=== PATIENT | male | born 1935 | race Caucasian/White ===

== ENCOUNTER → 2017-04-28 09:13 | Outpatient (CLI) | payer MEDICARE, OTHER, SELFPAY ==
[2017-04-28 11:31] LABS: AST(SGOT) 18 U/L (15-37); Alanine Aminotransfer ALT/SGPT 31 U/L (12-78); Albumin, Serum 3.2 g/dL (3.4-5.0); Alkaline Phosphatase 146 U/L (45-117); Bilirubin, Direct 0.28 mg/dL (0.00-0.30); Cholesterol 133 mg/dL (200); Globulin 3.9 g/dL (2.2-4.2); High Density Lipoprotein 44 mg/dL; Protein, Total 7.1 g/dL (6.4-8.2); T4 Total, Thyroxin 11.9 ug/dL (4.5-12.1); Triglycerides 48 mg/dL; Very Low Density Lipoprotein 10 mg/dL (5-40)
== END ==
PROVIDERS: Family Provider Family Medicine; PCP Family Medicine; Visit Provider Nurse Practitioner Family
DX: E78.5 Hyperlipidemia, unspecified (principal)
CPT/HCPCS: 36415; 80061; 80076; 84436; 84443

== ENCOUNTER → 2017-05-19 07:49 | Outpatient (CLI) | payer MEDICARE, OTHER, SELFPAY ==
--- NOTE | 2017-05-20 11:54 | PFT ---
INTRODUCTION: The patient is an 81-year-old male currently under the care of Alvino Flor NP that presents for pulmonary function testing secondary to a diagnosis of high risk medication use. Respiratory therapy reports good patient effort reports no other concerns. Bronchodilators were used during testing. INTERPRETATION: Forced expiration spirometry demonstrates the presence of a mild large airways obstructive ventilatory defect. There was no significant response to aerosolized bronchodilators, based upon strict ATS criteria. Spirograms are of good quality and do not plateau indicating slow emptying of the lungs. The respiratory flow volume loop appears normal. Body plethysmography was performed and reveals lung volumes to be within normal limits. Diffusing capacity by single breath CO is within normal limits. When compared to previous pulmonary function studies dated February 2013, there has been a 13% decrease in the patient's DLCO. IMPRESSION: These pulmonary function studies demonstrate the presence of an irreversible mild large airways obstructive ventilatory defect. There has been a 13% reduction in the patient's diffusing capacity since PFTs were last completed in February 2013. Clinical correlation is recommended.
== END ==
PROVIDERS: Family Provider Family Medicine; PCP Family Medicine; Visit Provider Nurse Practitioner Family
DX: Z79.899 Other long term (current) drug therapy (principal)
CPT/HCPCS: 94060; 94726; 94729

== ENCOUNTER → 2017-10-28 08:07 | Outpatient (CLI) | payer MEDICARE, OTHER, SELFPAY ==
[2017-10-28 09:11] LABS: AST(SGOT) 19 U/L (15-37); Alanine Aminotransfer ALT/SGPT 30 U/L (16-61); Albumin, Serum 3.2 g/dL (3.2-5.0); Alkaline Phosphatase 132 U/L (45-117); Bilirubin, Direct 0.27 mg/dL (0.00-0.30); Cholesterol 148 mg/dL (200); Globulin 3.9 g/dL (2.2-4.2); High Density Lipoprotein 45 mg/dL; Protein, Total 7.1 g/dL (6.4-8.2); Triglycerides 52 mg/dL; Very Low Density Lipoprotein 10 mg/dL (5-40)
== END ==
PROVIDERS: Family Provider Family Medicine; PCP Family Medicine; Visit Provider Nurse Practitioner Family
DX: E78.5 Hyperlipidemia, unspecified (principal); Z79.899 Other long term (current) drug therapy
CPT/HCPCS: 36415; 80061; 80076

== ENCOUNTER → 2017-12-27 10:22 | Outpatient (CLI) | payer MEDICARE, OTHER, SELFPAY ==
[2017-12-27 11:06] LABS: International Normalized Ratio 2.4; Prothrombin Time (Protime)PT. 26.4 SECONDS (11.7-14.9)
== END ==
PROVIDERS: Family Provider Family Medicine; PCP Family Medicine; Referring Provider Physician Assistant Medical; Visit Provider Physician Assistant Medical
DX: I48.0 Paroxysmal atrial fibrillation (principal); Z79.01 Long term (current) use of anticoagulants
CPT/HCPCS: 36415; 85610

== ENCOUNTER → 2018-01-16 15:44 | Outpatient (CLI) | payer MEDICARE, OTHER, SELFPAY ==
[2018-01-16 18:14] LABS: Prothrombin Time (Protime)PT. 51.1 SECONDS (11.7-14.9)
[2018-01-16 19:48] LABS: International Normalized Ratio 5.6
== END ==
PROVIDERS: Family Provider Family Medicine; PCP Family Medicine; Referring Provider Internal Medicine Cardiovascular Disease; Visit Provider Internal Medicine Cardiovascular Disease
DX: I48.0 Paroxysmal atrial fibrillation (principal); I47.1 Supraventricular tachycardia; Z79.01 Long term (current) use of anticoagulants
CPT/HCPCS: 36415; 85610

== ENCOUNTER 2018-01-25 10:54 | Outpatient (RCR) | payer MEDICARE, OTHER, SELFPAY ==
[2018-01-20 10:31] LABS: Prothrombin Time (Protime)PT. 51.6 SECONDS (11.7-14.9)
[2018-01-20 10:43] LABS: International Normalized Ratio 5.7
[2018-01-23 09:19] LABS: International Normalized Ratio 2.5; Prothrombin Time (Protime)PT. 26.7 SECONDS (11.7-14.9)
[2018-01-25 12:39] LABS: International Normalized Ratio 1.8; Prothrombin Time (Protime)PT. 20.9 SECONDS (11.7-14.9)
== END 2018-01-25 12:00 | disposition home or self-care (01) ==
LOC: LAB 10:54
PROVIDERS: Family Provider Family Medicine; PCP Family Medicine; Referring Provider Internal Medicine Cardiovascular Disease; Visit Provider Internal Medicine Cardiovascular Disease
DX: I48.0 Paroxysmal atrial fibrillation (principal); I47.1 Supraventricular tachycardia; Z79.01 Long term (current) use of anticoagulants
CPT/HCPCS: 36415; 85610

== ENCOUNTER → 2018-03-13 09:52 | Outpatient (CLI) | payer MEDICARE, OTHER, SELFPAY ==
--- NOTE | 2018-03-13 09:58 | US_ITS ---
STUDY: RENAL ULTRASOUND - COMPLETE REASON FOR EXAM: Male, 82 years old. Urinary retention. TECHNIQUE: Ultrasound evaluation of the kidneys was performed with real-time and static alfaro-scale imaging. COMPARISON: None. FINDINGS: RIGHT KIDNEY: Normal location of the right kidney, which is normal in size. The right kidney measures 10.8 x 5.9 x 6.4 cm. There is a normal cortex of the right kidney. The renal cortex measures 1.1 cm. There is no right renal mass or cyst. There are no right renal calculi. There is no right hydronephrosis. DISTAL RIGHT URETER: There is non-visualization of the distal right ureter. There is no demonstrated right ureterovesical junction calculus. There is a visualized right ureteral jet. LEFT KIDNEY: Normal location of the left kidney, which is normal in size. The left kidney measures 10.9 x 6.1 x 5.3 cm. There is a normal cortex of the left kidney. The renal cortex measures 1.3 cm. Small left renal cysts are seen measuring 1.2 and 1.7 cm. There are no left renal calculi. There is no left hydronephrosis. DISTAL LEFT URETER: There is non-visualization of the distal left ureter. There is no demonstrated left ureterovesical junction calculus. There is a visualized left ureteral jet. BLADDER: The distended urinary bladder has a volume of 242 ml. The empty urinary bladder has a volume of 294 ml. The patient was unable to empty the bladder. There is a normal wall thickness of the distended urinary bladder. There is no demonstrated mass within the urinary bladder. There are no demonstrated bladder calculi. Prostate is only mildly enlarged, but does extend into the base of the bladder. US/Kidney and Bladder IMPRESSION: No acute abnormalities of the kidneys. No hydronephrosis. However the patient could not void in the bladder volume actually increased over the course of the exam. Electronically Signed: Beau Aldrich MD at 17:44 EST , Service support ,
== END ==
PROVIDERS: Family Provider Family Medicine; PCP Family Medicine; Referring Provider Nurse Practitioner Adult Health; Visit Provider Nurse Practitioner Adult Health
DX: R33.9 Retention of urine, unspecified (principal)
CPT/HCPCS: 76770

== ENCOUNTER → 2018-10-20 07:43 | Outpatient (CLI) | payer MEDICARE, OTHER, SELFPAY ==
[2018-07-21 10:46] VITALS: BMI 29.7
--- NOTE | 2018-10-20 07:44 | RAD_ITS ---
STUDY: X-RAY CHEST REASON FOR EXAM: Male, 83 years old. Use of long-term meds. TECHNIQUE: PA and lateral views of the chest. COMPARISON: Comparison is made with prior examination dated April 21, 2015. FINDINGS: Stable increased interstitial markings at the lung bases suggestive of bibasilar scarring. Hyperinflation. There is no demonstrated pleural abnormality. Normal size heart. Normal mediastinum and christopher. Normal visualized pulmonary arteries. Normal visualized aortic arch and descending thoracic aorta. There are diffuse degenerative changes of the visualized thoracic spine. Normal visualized ribs, clavicles, and shoulders. There is no demonstrated abnormality of the visualized soft tissue structures of the upper abdomen. RAD/Chest PA and Lateral IMPRESSION: Stable bibasilar scarring. Electronically Signed: Franklin Mansfield, at 8:58 EDT , Service support ,
--- NOTE | 2018-10-20 11:23 | PFTCOMP_ITS ---
COMPLETE PULMONARY FUNCTION TEST INTERPRETATION Brief HPI: Patient is an 83 year old male, currently under the care of Alvino Flor, who presents to [facility] for complete pulmonary function tests secondary to diagnosis of hypertension. Respiratory therapist reports good effort and reproducible results. Interpretation: Forced expiration spirometry shows no large airways obstructive ventilatory defect with an FEV1 of 105% predicted. There is no significant bronchodilator response by strict ATS criteria. Spirograms are of good quality and plateau normally. The respiratory flow volume loop shows a normal pattern. Lung volumes by body plethysmography show a normal total lung capacity at 7.46 L, 114% predicted. All other lung volumes are within normal limits. Diffusion capacity by carbon monoxide is normal at 113% predicted. The airway resistance is normal. Compared to previous pulmonary function tests from 05/19/2017, there is been a significant improvement in total lung capacity and DLCO by 15% and 14% respectively. Impression: These pulmonary function tests are within normal limits.
[2018-10-20 12:09] LABS: AST(SGOT) 17 U/L (15-37); Alanine Aminotransfer ALT/SGPT 25 U/L (16-61); Albumin, Serum 3.4 g/dL (3.2-5.0); Alkaline Phosphatase 145 U/L (45-117); Bilirubin, Direct 0.21 mg/dL (0.00-0.30); Protein, Total 7.4 g/dL (6.4-8.2); T4 Free Direct 1.35 ng/dL (0.76-1.46); Thyroid Stim Hormone (TSH) 0.63 uIU/mL (0.358-3.74)
== END ==
PROVIDERS: Family Provider Family Medicine; PCP Family Medicine; Referring Provider Nurse Practitioner Family; Visit Provider Nurse Practitioner Family
DX: I10 Essential (primary) hypertension (principal); I48.0 Paroxysmal atrial fibrillation; Z79.899 Other long term (current) drug therapy
CPT/HCPCS: 36415; 71046; 80076; 84439; 84443; 94060; 94726; 94729

== ENCOUNTER 2019-11-14 05:33 | Day surgery (SDC) | payer MEDICARE, OTHER, SELFPAY ==
[2019-02-13 13:42] VITALS: BMI 29.5
[2019-11-07 13:15] VITALS: BMI 29.0
[2019-11-08 12:25] LABS: Hematocrit 38.1 % (40-54); Hemoglobin 12.2 g/dL (13.0-16.5); Mean Corpuscular Hgb 29.7 pg (27.0-32.0); Mean Corpuscular Volume 92.7 fL (80-94); Mean Platelet Vol. 10.2 fl (6.2-12.0); Platelet Count 272 K/mm3 (150-450); RBC Distribution Width CV 13.2 % (11.6-14.6); RBC Distribution Width SD 45.1 fl (35.1-43.9); Red Blood Count 4.11 M/mm3 (4.6-6.2); White Blood Count 7.1 K/mm3 (4.4-11.0)
[2019-11-08 12:51] LABS: Anion Gap 6 (5-15); BUN 32 mg/dL (7-18); BUN/Creat Ratio 16.8 RATIO (10-20); Calcium,Total 8.4 mg/dL (8.5-10.1); Chloride 107 mmol/L (98-107); EST Glomerular Filtration Rate 36 mL/min (>60); Est Glom Filt Rate - Afr Amer 44 mL/min (>60); Glucose 70 mg/dL (74-106); Sodium Level 138 mmol/L (136-145)
[2019-11-14] VITALS (10 sets, daily range): BP systolic 119–176; BP diastolic 45–105; PULSE 45–63; RESP 14–18; TEMP 35.6–36.6; O2SAT 94–100; BMI 28.0
[2019-11-14] MEDS: Lactated Ringers 1,000 ML 100 ML IV ×2 (06:19→09:18)
[2019-11-14] MEDS: Cefazolin 2 GM in 0.9% Normal Saline 100 ML IV (07:20)
--- NOTE | 2019-11-14 07:26 | HP.PCM_ITS ---
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) HLD (hyperlipidemia) (Chronic) Paroxysmal supraventricular tachycardia (Chronic) S/P ablation in July 2005 Paroxysmal atrial fibrillation (Chronic) S/P DCCV July 2010 PVCs (premature ventricular contractions) (Chronic) Other peripheral vascular disease (Chronic) Dizziness (Chronic) Fatigue (Chronic) Medical History: Medical History (Last Reviewed 01/16/18 @ 14:43 by Audra Vee) Essential hypertension (Chronic) I10 MCC (current) use of anticoagulants (Chronic) Z79.01 HLD (hyperlipidemia) (Chronic) E78.5 Paroxysmal supraventricular tachycardia (Chronic) I47.1 S/P ablation in July 2005 Paroxysmal atrial fibrillation (Chronic) I48.0 S/P DCCV July 2010 PVCs (premature ventricular contractions) (Chronic) I49.3 Other peripheral vascular disease (Chronic) I73.89 Dizziness (Chronic) R42 Fatigue (Chronic) R53.83 Allergies naproxen [From Aleve] Allergy (Verified 11/14/19 05:57) Hives Penicillins Allergy (Verified 11/14/19 05:57) Hives Home Medications: Ambulatory Orders Medication Instructions Recorded aspirin 81 mg tablet,delayed 81 mg PO QDAY 04/20/17 release amiodarone 200 mg tablet 100 mg PO QDAY #45 tab 04/23/19 apixaban 5 mg tablet 5 mg PO BID #60 tab 04/23/19 carvedilol 3.125 mg tablet 3.125 mg PO BID #180 tab 07/19/19 Multivitamin with Minerals 1 ea PO DAILY 11/08/19 [Multiple Vitamin] Surgical History: Surgical History (Last Reviewed 01/16/18 @ 14:43 by Audra Vee) History of hemorrhoidectomy Z98.890 History of left heart catheterization Z98.890 [facility]: 08/19/2007 Surgical History: no surgical history Smoking Status: Never smoker Tobacco Use: Non-smoker Review of Systems Constitutional: Denies: Chills, Fever, Weight Change HEENT: Denies: Head Aches, Sinus Congestion, Sinus Drainage Cardiovascular: Denies: Chest Pain, Palpitations Respiratory: Denies: Cough, Shortness of breath at rest, Sputum production Gastrointestinal: Denies: Abdominal Pain, Nausea, Vomiting Genitourinary: Denies: Dysuria Musculoskeletal: Denies: Joint Pain, Joint Tenderness Skin: Denies: Rash, Wounds Neurological: Denies: Numbness, Tingling, Focal weakness Psychiatric: Denies: Anxiety, Depression, Homicidal Ideations, Suicidal Ideations Hematologic/ Lymphatic: Denies: Easy Bruising, Easy Bleeding VTE Information - Inpt Only VTE Present on Admission: No VTE Mechan Device Prophylaxis: SCD's Patient Problems: Active and Suspected Problems (Last Reviewed 01/16/18 @ 14:43 by Audra Vee) BPH with obstruction/lower urinary tract symptoms (Acute) - Physical Exam Vitals/I&O's: Vital Signs Temp Pulse Resp BP Pulse Ox 97.4 F L 63 16 140/68 H 99 11/14/19 06:01 11/14/19 06:01 11/14/19 06:01 11/14/19 06:01 11/14/19 06:01 Oxygen Delivery Method Room Air Weight: 88.8 kg Body Mass Index (BMI) 28.0 General: Alert, Oriented x3, Cooperative HEENT: Atraumatic, PERRLA, EOMI, Normocephalic Neck: Supple, No JVD, Negative Carotid Bruits Lungs: Clear to auscultation, Normal air movement Cardiovascular: Regular rate, No murmurs Abdomen: Bowel Sounds Present, Soft, Non Tender Extremities: No edema, Capillary Refill Less than 3 Seconds Skin: No rashes, No breakdown Musculoskeletal: No Tenderness to Palpation of Joints or Extremities Neurological: Cranial nerves II-XII grossly intact Psych/Mental Status: Normal Affect, Appropriate Current Medications Cefazolin Sodium 2 gm/ Sodium (Chloride) 110 mls @ 150 mls/hr IV PREOP ONE Stop: 11/14/19 11:28 Lactated Ringer's () 1,000 mls @ 100 mls/hr IV .Q10H [facility] Last Admin: 11/14/19 06:19 Dose: 100 mls/hr Documented by: Assessment/Plan All Active Problems (Last Reviewed 01/16/18 @ 14:43 by Audra Vee) BPH with obstruction/lower urinary tract symptoms (Acute) 84-year-old male with BPH obstruction plan to proceed the transurethral resection of the prostate.
--- NOTE | 2019-11-14 07:30 | PROS_PTH ---
PATIENT: GÉNESIS MOYA LOC: [facility] [place] U#:[id number] AGE/SX: 84/M ROOM: RE11/14/[address]: Dr. Lavelle Verduzco MD : [id number] BED: DIS: 11/15/2019 SPEC #: [id number] RECD: 11/14/19 09:18 STATUS: SHYANNE ALBERTO #: [id number] CECILLE: 11/14/19 07:[address]: Lavelle Verduzco DEPT: SURGICAL PATHOLOGY RECD BY: Triston Logan ENTERED: 11/14/19 09:30 SP TYPE: TURP OTHR DR: Dr. Vin Landeros, DO Tissues: Prostate, NOS Procedures: Surgery Specimen Level IV HEADER OPERATION: Cysto, TUR prostate, Olympus PRE-OP DIAGNOSIS: BPH with obstruction TISSUE SUBMITTED: Prostate chips MICROSCOPIC DIAGNOSIS Prostate chips, TUR: Benign prostatic hyperplasia, glandular and stromal type. Focal chronic inflammation. SJ:ana maría 11/15/19 MICROSCOPIC DESCRIPTION Slides are reviewed. GROSS DESCRIPTION Received is one container labeled with the patient's name and designated prostate tissue. The specimen consists of multiple irregular fragments of pink-cunha, rubbery, soft tissue that in aggregate weigh 12.9 gm and measure in aggregate 5 x 6 x 2 cm. Freight Unloader tissue is submitted in ten cassettes. About 80% of the specimen is submitted. / SJ:ana maría 11/14/19 TC:5 CPT: 94455
--- NOTE | 2019-11-14 07:31 | DCINST_ITS ---
Discharge Diet: Light diet - advance as tolerated Discharge Activity: Return to Normal Activity, May not drive while taking narcotic pain medications. Call your doctor if you observe: Fever of 101 or Higher Suture Line Care: Avoid Pulling/Pushing, Avoid Pinching/Bending Instructions: Transurethral Resection of the Prostate (TURP): Home Recovery Allergies/Adverse Reactions: Allergies naproxen [From Aleve] Allergy (Verified 11/14/19 05:57) Hives Penicillins Allergy (Verified 11/14/19 05:57) Hives Medications to take at Discharge aspirin 81 mg tablet,delayed release 81 mg PO QDAY 04/20/17 amiodarone 200 mg tablet 100 mg PO QDAY #45 tab 04/23/19 apixaban 5 mg tablet 5 mg PO BID #60 tab 04/23/19 carvedilol 3.125 mg tablet 3.125 mg PO BID #180 tab 07/19/19 Multivitamin with Minerals [Multiple Vitamin] 1 ea PO DAILY 11/08/19 Primary Care Physician: Vin Landeros DO [Primary Care Provider] - Test Results: Test results from this visit will be discussed in further detail at your follow- up appointment, if applicable. Please Follow Up With: Lavelle Verduzco MD When: in 2 weeks, please call to make an appointment.
[2019-11-14] MEDS: Lubricating Jelly 60 GM Tube 30 GM TOPICAL (07:39)
--- NOTE | 2019-11-14 08:31 | PCM.OPRPT ---
Problem List (1) BPH with obstruction/lower urinary tract symptoms Status: Acute Report of Operation Date of Procedure: 11/14/19 Pre-Operative Diagnosis: Prostate enlarged and BPH with obstruction incomplete emptying Post-Operative Diagnosis: The same Surgery/Procedure Performed:: Transurethral resection of the prostate Description of Surgical Findings:: 84-year-old male was taken back to the operating room after smooth induction of general anesthesia he was placed in dorsolithotomy position the penis and testicles are prepped and draped in usual sterile fashion went into the bladder with a 24 Beninese noncontinuous flow resectoscope the entire length of the urethra was normal prostate verumontanum was identified, he had bilateral hypertrophy with obstruction inside the bladder he had an atonic stretched out looking bladder left and right ureteral orifice were identified I then resected the median lobe resected the right lobe of the prostate resect the left lobe the prostate very carefully resected the apical tissue the length of the prostate was short only about 2 cm in length as obstructive tissue. After the all the obstructive tissue was removed had a wide open channel between the verumontanum and the bladder there was no flapping tissue or obstructive tissue at the bladder neck. I then placed the catheter into the bladder with continuous irrigation the urine was nice and clear patient anesthetic was reversed and he was taken back to the PACU in good condition. Type of Anesthesia:: General Drains: baker 3 way - Admit VTE Documentation VTE Present on Admission: No VTE Mechan Device Prophylaxis: SCD's
[2019-11-14] MEDS: Docusate Sodium 100 MG Capsule PO ×2 (12:08→21:10)
[2019-11-14] MEDS: Carvedilol 3.125 MG TABLET PO (12:08)
[2019-11-14] MEDS: Pantoprazole Sodium 40 MG Tablet PO (12:08)
[2019-11-14] MEDS: Amiodarone 200 MG Tablet 100 MG PO (12:08)
[2019-11-14] MEDS: 0.9% Normal Saline 1,000 ML 75 ML IV (12:13)
[2019-11-14] MEDS: Ciprofloxacin 400 MG/200 ML BAG 200 MG IV (14:39)
--- NOTE | 2019-11-14 14:50 | CHAPLAIN ---
Type of Pastoral Visit _x__ Initial Visit ___ Follow-up Visit ___ On-call Visit ___ General Patient Visit ___ Spiritual Assessment ___ Family Conference ___ Bereavement ___ Rapid Response ___ Code Blue ___ Other (describe below) Pastoral Care Referral From _x__ Patient _x__ Family ___ Nurse ___ Physician ___ Traffic Court Referee ___ Build Master ___ Other (describe below) Sacrament/Intervention _x__ Active listening ___ Anointing ___ Catholic ___ Bereavement ___ Communion ___ Kailey exploration ___ _x__ Life review _x__ Prayer ___ Reconciliation ___ Sacrament of Sick _x__ Supportive presence ___ Wedding ___ Other (describe below) Pastoral Comments
[2019-11-15 02:15] VITALS: BP 124/63; PULSE 47; RESP 18; TEMP 36.8; O2SAT 98
[2019-11-15] MEDS: Ciprofloxacin 400 MG/200 ML BAG 200 MG IV (02:34)
[2019-11-15] MEDS: 0.9% Normal Saline 1,000 ML 75 ML IV (02:36)
[2019-11-15 02:41] VITALS: PULSE 48
[2019-11-15 08:30] VITALS: BP 142/70; PULSE 54; RESP 16; TEMP 36.3; O2SAT 99
[2019-11-15] MEDS: Multivitamins,Ther W-Minerals Tablet 1 TABLET PO (08:39)
[2019-11-15] MEDS: Docusate Sodium 100 MG Capsule PO (08:39)
[2019-11-15] MEDS: Amiodarone 200 MG Tablet 100 MG PO (08:40)
[2019-11-15] MEDS: Pantoprazole Sodium 40 MG Tablet PO (08:40)
[2019-11-15] MEDS: Carvedilol 3.125 MG TABLET PO (08:40)
[2019-11-15 12:10] VITALS: BP 145/69; PULSE 54; RESP 18; TEMP 36.6; O2SAT 99
== END 2019-11-15 12:15 | disposition home or self-care (01) ==
LOC: SDC 05:34 → AC 05:34 → MS3 11-15 09:23
PROVIDERS: Anesthesiology; PCP Family Medicine; Referring Provider Urology; Visit Provider Urology
PROC: (CPT 52601; principal; 2019-11-14 07:20)
DX: N40.1 Benign prostatic hyperplasia with lower urinary tract symptoms (principal); N41.1 Chronic prostatitis; N13.8 Other obstructive and reflux uropathy; R39.14 Feeling of incomplete bladder emptying; R33.8 Other retention of urine; R35.0 Frequency of micturition; R35.1 Nocturia; N31.2 Flaccid neuropathic bladder, not elsewhere classified; I48.0 Paroxysmal atrial fibrillation; I47.1 Supraventricular tachycardia; G30.9 Alzheimer's disease, unspecified; F02.80 Dementia in other diseases classified elsewhere, unspecified severity, without behavioral disturbance, psychotic disturbance, mood disturbance, and anxiety; I10 Essential (primary) hypertension; E78.5 Hyperlipidemia, unspecified; K21.9 Gastro-esophageal reflux disease without esophagitis; J45.998 Other asthma; G47.30 Sleep apnea, unspecified; Z79.01 Long term (current) use of anticoagulants; Z79.82 Long term (current) use of aspirin; Z79.899 Other long term (current) drug therapy
CPT/HCPCS: 00914; 52601; 36415; 80048; 85027; 87635; 88305; 94799; 99251; J7030; J7120; G0463; J0744; J2405; U0003

== ENCOUNTER 2019-11-24 16:03 | Emergency (ER) | payer MEDICARE, OTHER, SELFPAY ==
[2019-11-14 06:01] VITALS: BMI 28.0
[2019-11-24 16:04] VITALS: BP 160/74; PULSE 65; RESP 16; TEMP 36.9; O2SAT 99; BMI 27.5
[2019-11-24 16:32] LABS: Absolute Lymphocyte Count 2.29 X10^3/uL (0.83-4.51); Absolute Neutrophil Count 6.5 X10^3/uL (2.0-7.7); Basophil# 0.05 X10^3/uL; Basophil% 0.5 % (0-1); Eosinophil# 0.53 X10^3/uL; Eosinophils% 5.1 % (0-5); Hematocrit 33.5 % (40-54); Hemoglobin 10.9 g/dL (13.0-16.5); Lymphocyte # 2.29 X10^3/ul (4.0); Lymphocyte % 22.1 % (19-41); Mean Corp Hgb Conc 32.5 g/dL (32-36); Mean Corpuscular Volume 92.3 fL (80-94); Mean Platelet Vol. 9.4 fl (6.2-12.0); Monocyte# 1.01 X10^3/uL; Monocyte% 9.7 % (0-10); NRBC Flagged by Analyzer 0 % (0-5); Neutrophil # 6.47 X10^3/uL (2.7-7.7); Neutrophil % 62.3 % (47-70); Platelet Count 280 K/mm3 (150-450); RBC Distribution Width CV 13.7 % (11.6-14.6); RBC Distribution Width SD 46.3 fl (35.1-43.9); Red Blood Count 3.63 M/mm3 (4.6-6.2); White Blood Count 10.4 K/mm3 (4.4-11.0)
--- NOTE | 2019-11-24 16:32 | ED.VIS.GEN ---
History of Present Illness Informant: Patient, Significant Other Onset: Today Context: Sudden Onset Timing: Continuous Quality: bleeding Location: penis Current Severity: Severe Maximum Severity: Severe Worsened by: nothing Relieved by: nothing Associated Symptoms: denies Narrative: 84-year-old male presents with bleeding from his penis that started 1 hour ago. He had a TURP done [address] verduzco. He is on Eliquis. He has been doing well since about an hour ago when he noticed blood rushing out of his penis. No clots. He does not feel lightheaded or dizzy. No other symptoms of bleeding. No abdominal pain. No scrotal pain or swelling. No trauma. Prior similar symptoms: No Recent Illness/Hospitalization: Yes <Saul Cameron - Last Filed: 11/24/19 17:48> <Khanh Grimes - Last Filed: 11/24/19 21:36> Chief Complaint: Complaint Past Medical History Prior records reviewed: Yes Past Medical History: - - Hypertension hyperlipidemia atrial fibrillation Surgical History: TURP Lives: With Family Smoking Status: Never smoker <Saul Cameron - Last Filed: 11/24/19 17:48> <Khanh Grimes - Last Filed: 11/24/19 21:36> - Allergies and Home Meds Allergies/Adverse Reactions: Allergies naproxen [From Aleve] Allergy (Verified 11/24/19 16:03) Hives Penicillins Allergy (Verified 11/24/19 16:03) Hives Primary Care Physician: Lavelle Verduzco MD [STAFF PHYSICIAN] - 11/26/19 Review of Systems All systems negative except as indicated General: Denies: Chills, Fever, Sweats Eyes: Denies: Visual changes - bilaterally, Diplopia ENT: Denies: Rhinorrhea, Sore throat Cardiovascular: Denies: Chest pain, Palpitations Respiratory: Denies: Dyspnea, Cough, Dyspnea on exertion Gastrointestinal: Denies: Abdominal pain, Nausea, Vomiting, Diarrhea, Melena, Hematochezia Genitourinary: Reports: Hematuria. Denies: Dysuria, Frequency Musculoskeletal: Denies: Back pain, Extremity Pain Skin: Denies: Rash, Wounds Neurological: Denies: Headache, Weakness, Numbness <Saul Cameron - Last Filed: 11/24/19 17:48> Physical Exam Vital Signs/Narrative: Vital Signs Temp Pulse Resp BP Pulse Ox 11/24/19 16:04 98.5 F 65 16 160/74 H 99 Inital Vital Signs reviewed: Yes General: Well nourished, Well developed, No Acute Distress Head: Normocephalic, Atraumatic Eyes: Perrl, EOMI ENT: Moist mucous membranes, No rhinorrhea Neck: Supple, Nontender Cardiovascular: Regular rate, Regular rhythm, No murmurs Respiratory: No distress, CTA bilaterally, Chest nontender Abdomen: Soft, Nontender, Nondistended, Normal bowel sounds : - - Normal inspection of penis and scrotum there is a small amount of blood oozing continuously from the penis but no clots. Back: Nontender, Normal Inspection Extremities: Nontender, No edema Skin: Normal color, No rash Neurological: Alert, Oriented x3, Cranial nerves II-XII grossly intact, Normal Strength, Normal Sensation Psychological: Normal affect, Normal Mood <Saul Cameron - Last Filed: 11/24/19 17:48> Vital Signs/Narrative: Vital Signs Temp Pulse Resp BP Pulse Ox 11/24/19 16:04 98.5 F 65 16 160/74 H 99 <Khanh Grimes - Last Filed: 11/24/19 21:36> Diagnostic/Tx/Re-eval Laboratory Results 11/24/19 11/24/19 16:20 16:20 WBC 10.4 RBC 3.63 L Hgb 10.9 L Hct 33.5 L MCV 92.3 MCH 30.0 MCHC 32.5 RDW Std Deviation 46.3 H RDW Coeff of Paola 13.7 Plt Count 280 MPV 9.4 Immature Gran % (Auto) 0.300 Neut % (Auto) 62.3 Lymph % (Auto) 22.1 Beadle % (Auto) 9.7 Eos % (Auto) 5.1 H Baso % (Auto) 0.5 Absolute Neuts (auto) 6.5 Absolute Lymphs (auto) 2.29 Nucleated RBC % 0 Sodium 135 L Potassium 4.4 Chloride 105 Carbon Dioxide 23.0 Anion Gap 7 BUN 28 H Creatinine 1.57 H Estim Creat Clear Calc 36.16 Est GFR (MDRD) Af Amer 54 L Est GFR (MDRD) Non-Af 45 L BUN/Creatinine Ratio 17.8 Glucose 103 Calcium 7.8 L - Medical Decision Making On arrival the patient was having hematuria and bleeding from his penis. Three-way Marroquin catheter placed by nursing staff. Patient was hooked up to continuous bladder irrigation. His laboratory work was unremarkable hemoglobin stable. Repeat evaluation patient has been irrigated clear. No further bleeding. I spoke with his urologist Dr. Verduzco, recommended that we do not leave the Marroquin catheter in place but remove it. He also asked that we have the patient hold his Eliquis. Patient will call Dr. Verduzco's office on Tuesday for an appointment. Catheter removed without difficulty. patient and agreeable with plan, all questions answered, discharged home. <Saul Cameron - Last Filed: 11/24/19 17:48> - Medical Decision Making Patient was seen with me. I did a [id number] examination with the patient. Patient presents with hematuria that began today. Patient noted blood from his penis today. Patient noted blood in his urine. Patient denies any fevers or chills. Patient admits to some mild dysuria. Patient denies any flank pain. Patient denies any nausea or vomiting. Vital signs are stable. Patient is afebrile. Patient is in no acute distress. Oral mucosa is pink and moist. Heart was regular rate and rhythm. Lungs are clear and equal bilaterally. Abdomen is soft. Bowel sounds are normal. There is no tenderness. Cranial nerves II through XII are intact. There are no focal motor or sensory deficits. Marroquin catheter was placed. Patient's bladder was irrigated. Irrigation became clear. Urinalysis does not show any evidence of urinary tract infection. Case was discussed with Dr. Verduzco. He recommended removing the Marroquin catheter and having the patient hold his Eliquis. He will follow-up in his office on Tuesday. Patient and understood and were agreeable with the plan. All questions were answered. The Marroquin catheter was removed. Patient started having more hematuria after this. Patient was unable to urinate on his own. Patient states he felt the urge to urinate was unable to pass any urine. Marroquin catheter was replaced. More irrigation was performed. Irrigation fluid appeared clear. The Marroquin catheter was left in place. Patient was instructed to return tomorrow to have the Marroquin catheter removed. Patient understands and is agreeable with the plan. All questions were answered. 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 Return tomorrow to have your catheter removed. Please call Dr. Verduzco's office Tuesday.
[2019-11-24 16:48] LABS: Anion Gap 7 (5-15); BUN 28 mg/dL (7-18); BUN/Creat Ratio 17.8 RATIO (10-20); Calcium,Total 7.8 mg/dL (8.5-10.1); Chloride 105 mmol/L (98-107); Creatinine, Serum 1.57 mg/dL (0.70-1.30); EST Glomerular Filtration Rate 45 mL/min (>60); Est Glom Filt Rate - Afr Amer 54 mL/min (>60); Estimated Creatinine Clearance 36.16 ml/min; Glucose 103 mg/dL (74-106); Potassium 4.4 mmol/L (3.5-5.1); Sodium Level 135 mmol/L (136-145)
--- NOTE | 2019-11-24 17:35 | ED.RN ---
3 way catheter attempted by another nurse without success. large clots. this nurse messaged several clotts appx 5-10mm in diameter and longated out fo penis. inserted [address] way cathter with some resistance. large, long clotting through catheter tubing, released on own and red urine appx 900cc return. connected to continuous irrigation, no return. manually irrigated 60cc ns, then restarted irrigation, irrigation flowing pink then to clear within seconds. continuos irrigation maintained at slow rate and continues to be clear. pr cleaned up, fresh linens and catheter secured. to observe irrigation/patient at this time. dr patel at bedside at this time.
[2019-11-24 18:31] VITALS: BP 148/60; PULSE 62; RESP 18; O2SAT 98
[2019-11-24 21:28] VITALS: BP 156/67; PULSE 53; RESP 18; O2SAT 100
== END 2019-11-24 21:28 | disposition home or self-care (01) ==
PROVIDERS: Emergency Provider Physician Assistant Medical; PCP Family Medicine
DX: R31.9 Hematuria, unspecified (principal); I48.91 Unspecified atrial fibrillation; I10 Essential (primary) hypertension; E78.5 Hyperlipidemia, unspecified; Z79.01 Long term (current) use of anticoagulants; Z79.82 Long term (current) use of aspirin; Z79.899 Other long term (current) drug therapy; Z90.79 Acquired absence of other genital organ(s)
CPT/HCPCS: 51702; 80048; 85025; 99285; A4216

== ENCOUNTER 2019-11-25 18:33 | Inpatient (IN) | payer MEDICARE, OTHER, SELFPAY ==
[2019-11-24 16:04] VITALS: BMI 27.5
[2019-11-25 18:34] VITALS: BP 163/81; PULSE 76; RESP 18; TEMP 36.8; O2SAT 98; BMI 26.5
--- NOTE | 2019-11-25 18:44 | ED.VIS.GEN ---
History of Present Illness Chief Complaint: Marroquin C/O Narrative: Patient is an 84-year-old male who presents with a Marroquin complication. He recently had a TURP procedure. He developed gross hematuria yesterday. A three-way Marroquin catheter was placed and he underwent bladder irrigation until clear. The emergency physician and PA spoke to the patient's urologist who asked that the Marroquin be removed. It was removed. The patient then developed recurrent hematuria and urinary retention. A 22 Nigerien catheter was replaced and irrigated and patient discharged with Marroquin in place. This was draining well until about noon today. Patient now complains of suprapubic pressure and a sensation of the need to urinate but the catheter is no longer draining. He otherwise has no complaints such as fevers chest pain shortness of breath vomiting diarrhea. He is on Eliquis for atrial fibrillation and this has been held since yesterday due to the hematuria. Past Medical History - Allergies and Home Meds Allergies/Adverse Reactions: Allergies naproxen [From Aleve] Allergy (Verified 11/25/19 18:37) Hives Penicillins Allergy (Verified 11/25/19 18:37) Hives Primary Care Physician: Vin Landeros DO [Primary Care Provider] - Past Medical History: - - Hypertension, atrial fibrillation Surgical History: TURP Smoking Status: Never smoker Review of Systems All systems negative except as indicated General: Denies: Fever Eyes: Denies: Visual changes - bilaterally Cardiovascular: Denies: Chest pain Respiratory: Denies: Dyspnea Gastrointestinal: Denies: Abdominal pain, Vomiting, Diarrhea Genitourinary: Reports: Hematuria Hematologic: Reports: Easy bleeding Allergy: Denies: Uticaria Physical Exam Vital Signs/Narrative: Vital Signs Temp Pulse Resp BP Pulse Ox 11/25/19 18:34 98.3 F 76 18 163/81 H 98 Inital Vital Signs reviewed: Yes General: Well nourished Head: Normocephalic Eyes: EOMI ENT: Moist mucous membranes Neck: Supple Cardiovascular: Regular rate Respiratory: No distress Abdomen: Soft, Nontender Skin: Normal color Neurological: Alert Psychological: Normal affect Diagnostic/Tx/Re-eval - Medical Decision Making Patient does have a 22 Nigerien three-way Marroquin catheter in. This was manually irrigated. Patient does have multiple clots. His urine will not clear an then again clots off the catheter. I spoke to the patient's urologist, Dr. Verduzoc. Patient will be admitted for continuous bladder irrigation. ED Disposition - Plan for ED Patient: Disposition: Acute Care Hospital [facility] Diagnosis: Hematuria Referrals: Vin Landeros DO [Primary Care Provider] -
[2019-11-25 19:26] VITALS: BP 163/81; PULSE 76; RESP 18; TEMP 36.8; O2SAT 98
[2019-11-25 19:41] LABS: Absolute Neutrophil Count 8.3 X10^3/uL (2.0-7.7); Basophil# 0.03 X10^3/uL; Basophil% 0.2 % (0-1); Eosinophil# 0.26 X10^3/uL; Eosinophils% 2.1 % (0-5); Hematocrit 28.7 % (40-54); Hemoglobin 9.6 g/dL (13.0-16.5); Lymphocyte % 18.7 % (19-41); Mean Corp Hgb Conc 33.4 g/dL (32-36); Mean Corpuscular Hgb 30.1 pg (27.0-32.0); Mean Platelet Vol. 9.4 fl (6.2-12.0); Monocyte# 1.38 X10^3/uL; Monocyte% 11.2 % (0-10); NRBC Flagged by Analyzer 0 % (0-5); Neutrophil # 8.29 X10^3/uL (2.7-7.7); Neutrophil % 67.3 % (47-70); Platelet Count 261 K/mm3 (150-450); RBC Distribution Width CV 13.5 % (11.6-14.6); RBC Distribution Width SD 44.2 fl (35.1-43.9); Red Blood Count 3.19 M/mm3 (4.6-6.2); White Blood Count 12.3 K/mm3 (4.4-11.0)
[2019-11-25 19:54] LABS: Anion Gap 9 (5-15); BUN 34 mg/dL (7-18); BUN/Creat Ratio 15.8 RATIO (10-20); Calcium,Total 7.7 mg/dL (8.5-10.1); Chloride 102 mmol/L (98-107); Creatinine, Serum 2.15 mg/dL (0.70-1.30); EST Glomerular Filtration Rate 31 mL/min (>60); Est Glom Filt Rate - Afr Amer 38 mL/min (>60); Estimated Creatinine Clearance 26.41 ml/min; Glucose 104 mg/dL (74-106); Potassium 3.7 mmol/L (3.5-5.1); Sodium Level 132 mmol/L (136-145)
[2019-11-25 19:56] LABS: International Normalized Ratio 1.2; Prothrombin Time (Protime)PT. 15.2 SECONDS (11.7-14.9)
[2019-11-25 20:30] VITALS: BP 137/56; PULSE 64; RESP 18; TEMP 37.1; O2SAT 100; BMI 28.3
[2019-11-25 20:33] VITALS: BMI 28.3
[2019-11-25] MEDS: Ciprofloxacin 400 MG/200 ML BAG 200 MG IV (20:57)
[2019-11-25] MEDS: 0.9% Normal Saline 1,000 ML 50 ML IV (21:30)
[2019-11-26 03:23] VITALS: BP 114/53; PULSE 64; RESP 18; TEMP 37.3; O2SAT 98
--- NOTE | 2019-11-26 07:13 | PCM.HP.STD ---
History of Present Illness Date of Admission: 11/26/19 Chief Complaint: Gross hematuria after TURP The patient is a 84 year old male who underwent a TURP he was restarted on Eliquis the urine was clear at that point but then started bleeding comes back now to the hospital with heavy bleeding catheter was placed to be admitted for postoperative bleeding due to Eliquis. 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) use of anticoagulants (Chronic) Z79.01 HLD (hyperlipidemia) (Chronic) E78.5 Paroxysmal supraventricular tachycardia (Chronic) I47.1 S/P ablation in July 2005 Paroxysmal atrial fibrillation (Chronic) I48.0 S/P DCCV July 2010 PVCs (premature ventricular contractions) (Chronic) I49.3 Other peripheral vascular disease (Chronic) I73.89 Dizziness (Chronic) R42 Fatigue (Chronic) R53.83 Allergies naproxen [From Aleve] Allergy (Verified 11/25/19 18:37) Hives Penicillins Allergy (Verified 11/25/19 18:37) Hives Home Medications: Ambulatory Orders Medication Instructions Recorded aspirin 81 mg tablet,delayed 81 mg PO QDAY 04/20/17 release amiodarone 200 mg tablet 100 mg PO QDAY #45 tab 04/23/19 apixaban 5 mg tablet 5 mg PO BID #60 tab 04/23/19 carvedilol 3.125 mg tablet 3.125 mg PO BID #180 tab 07/19/19 Multivitamin with Minerals 1 ea PO DAILY 11/08/19 [Multiple Vitamin] Surgical History: Surgical History (Last Reviewed 01/16/18 @ 14:43 by Audra Vee) History of hemorrhoidectomy Z98.890 History of left heart catheterization Z98.890 [facility]: 08/19/2007 Surgical History: TURP Smoking Status: Never smoker Review of Systems Constitutional: Denies: Chills, Fever, Weight Change HEENT: Denies: Head Aches, Sinus Congestion, Sinus Drainage Cardiovascular: Denies: Chest Pain, Palpitations Respiratory: Denies: Cough, Shortness of breath at rest, Sputum production Gastrointestinal: Denies: Abdominal Pain, Nausea, Vomiting Genitourinary: Denies: Dysuria Musculoskeletal: Denies: Joint Pain, Joint Tenderness Skin: Denies: Rash, Wounds Neurological: Denies: Numbness, Tingling, Focal weakness Psychiatric: Denies: Anxiety, Depression, Homicidal Ideations, Suicidal Ideations Hematologic/ Lymphatic: Denies: Easy Bruising, Easy Bleeding VTE Information - Inpt Only VTE Present on Admission: No - Physical Exam Vitals/I&O's: Vital Signs Temp Pulse Resp BP Pulse Ox 99.2 F H 64 18 114/53 L 98 11/26/19 03:23 11/26/19 03:23 11/26/19 03:23 11/26/19 03:23 11/26/19 03:23 Oxygen Delivery Method Room Air Weight: 89.5 kg Body Mass Index (BMI) 28.3 Intake and Output for Last 24 Hours 11/24/19 11/25/19 11/26/19 23:59 23:59 23:59 Intake Total 200.83 / 200.83 Output Total 2800 / 2800 Balance 200.83 / 200.83 -2800 / -2800 General: Alert, Oriented x3, Cooperative HEENT: Atraumatic, PERRLA, EOMI, Normocephalic Neck: Supple, No JVD, Negative Carotid Bruits Lungs: Clear to auscultation, Normal air movement Cardiovascular: Regular rate, No murmurs Abdomen: Bowel Sounds Present, Soft, Non Tender Extremities: No edema, Capillary Refill Less than 3 Seconds Skin: No rashes, No breakdown Musculoskeletal: No Tenderness to Palpation of Joints or Extremities Neurological: Cranial nerves II-XII grossly intact Psych/Mental Status: Normal Affect, Appropriate Laboratory Results 11/25/19 19:32: WBC 12.3 H, RBC 3.19 L, Hgb 9.6 L, Hct 28.7 L, MCV 90.0, MCH 30.1, MCHC 33.4, RDW Std Deviation 44.2 H, RDW Coeff of Paola 13.5, Plt Count 261, MPV 9.4, Immature Gran % (Auto) 0.500, Neut % (Auto) 67.3, Lymph % (Auto) 18.7 L, Hood % (Auto) 11.2 H, Eos % (Auto) 2.1, Baso % (Auto) 0.2, Absolute Neuts (auto) 8.3 H, Absolute Lymphs (auto) 2.30, Nucleated RBC % 0 11/25/19 19:32: PT 15.2 H, INR 1.2 11/25/19 19:32: Sodium 132 L, Potassium 3.7, Chloride 102, Carbon Dioxide 21.0, Anion Gap 9, BUN 34 H, Creatinine 2.15 H, Estim Creat Clear Calc 26.41, Est GFR (MDRD) Af Amer 38 L, Est GFR (MDRD) Non-Af 31 L, BUN/Creatinine Ratio 15.8, Glucose 104, Calcium 7.7 L Current Medications Amiodarone HCl (Cordarone) 200 mg PO DAILYCM [facility] Belladonna Alkaloids/Opium (B & O) 60 mg RECTAL Q6H PRN PRN PRN Reason: bladder spasms Carvedilol (Coreg) 3.125 mg PO BIDCM [facility] Sodium Chloride () 250 mls @ 15 mls/hr IV .[id number] PRN PRN Reason: Saline Flush Sodium Chloride () 250 mls @ 15 mls/hr IV .[id number] PRN PRN Reason: Additional IVPB Infusion Ciprofloxacin (Cipro) 400 mg in 200 mls @ 200 mls/hr IV Q24@2200 [facility] Last Infusion: 11/25/19 21:58 Dose: Infused Documented by: Sodium Chloride () 1,000 mls @ 50 mls/hr IV .Q20H [facility] Last Infusion: 11/25/19 21:58 Dose: 50 mls/hr Documented by: Multivitamins/Minerals (Multivitamin With Minerals (Bkc)) 1 tablet PO DAILY@0800 [facility] Sodium Chloride () 10 - 40 ml IV UD PRN PRN Reason: SALINE FLUSH Assessment/Plan All Active Problems (Last Reviewed 01/16/18 @ 14:43 by Audra Vee) BPH with obstruction/lower urinary tract symptoms (Acute) Hematuria (Acute) For postoperative bleeding continue with CBI hold Eliquis continue with IV antibiotics
[2019-11-26] MEDS: 0.9% Saline Lock 10 ML Syringe IV (07:45)
[2019-11-26 08:09] VITALS: BP 126/58; PULSE 64; RESP 12; TEMP 36.9; O2SAT 97
[2019-11-26] MEDS: Multivitamins,Ther W-Minerals Tablet 1 TABLET PO (08:13)
[2019-11-26] MEDS: Carvedilol 3.125 MG TABLET PO ×2 (08:13→16:43)
[2019-11-26] MEDS: Amiodarone 200 MG Tablet PO (08:13)
[2019-11-26 08:28] VITALS: PULSE 64; O2SAT 97
--- NOTE | 2019-11-26 13:40 | CHAPLAIN ---
Type of Pastoral Visit _x__ Initial Visit ___ Follow-up Visit ___ On-call Visit ___ General Patient Visit ___ Spiritual Assessment ___ Family Conference ___ Bereavement ___ Rapid Response ___ Code Blue ___ Other (describe below) Pastoral Care Referral From _x__ Patient _x__ Family ___ Nurse ___ Physician ___ Technical Producer ___ Soft Water Mechanic ___ Other (describe below) Sacrament/Intervention _x__ Active listening ___ Anointing ___ Adventism ___ Bereavement ___ Communion ___ Kailey exploration ___ ___ Life review _x__ Prayer ___ Reconciliation ___ Sacrament of Sick _x__ Supportive presence ___ Wedding ___ Other (describe below) Pastoral Comments
[2019-11-26 14:10] VITALS: BP 133/72; PULSE 65; RESP 18; TEMP 36.7; O2SAT 99
[2019-11-26] MEDS: 0.9% Normal Saline 1,000 ML 50 ML IV (19:19)
[2019-11-26 20:10] VITALS: BP 127/64; PULSE 68; RESP 18; TEMP 37.6; O2SAT 96
[2019-11-26] MEDS: Ciprofloxacin 400 MG/200 ML BAG 200 MG IV (21:28)
[2019-11-27 00:10] VITALS: BP 151/67; PULSE 60; RESP 20; TEMP 36.9; O2SAT 97
[2019-11-27 03:08] VITALS: BP 120/45; PULSE 55; RESP 16; TEMP 36.8; O2SAT 98
--- NOTE | 2019-11-27 07:12 | PCM.PN.BLA ---
Progress Note Today I manually flush the catheter still got some clots out will continue his CBI I asked the nurse to manually flush his catheter every 4 hours. Tomorrow if the urine is clear we will consider removing the catheter for voiding trial may be discharged home tomorrow. Bleeding was caused by Eliquis.
--- NOTE | 2019-11-27 07:41 | NURSING ---
0400 Patient ambulated in hallway with 1 assist and walker. Tolerated well.
[2019-11-27 08:16] VITALS: BP 140/69; PULSE 55; RESP 18; TEMP 36.5; O2SAT 100
[2019-11-27] MEDS: Multivitamins,Ther W-Minerals Tablet 1 TABLET PO (08:22)
[2019-11-27] MEDS: Amiodarone 200 MG Tablet PO (08:22)
[2019-11-27] MEDS: Carvedilol 3.125 MG TABLET PO ×2 (08:22→17:22)
--- NOTE | 2019-11-27 11:16 | NURSING ---
1105 11/26. irrigated CBI baker, no clots removed. light pink output in syringe, drainage bag is light red. CBI is patent and draining
--- NOTE | 2019-11-27 11:20 | CASEMGMT ---
NORA QUIROGA Face to Face with patient for initial transition planning/care coordination assessment. RN CM introduced self and role at [facility]. Patient lying in bed, alert and oriented, at bedside. Patient willing to participate in assessment and is able to answer all questions appropriately. Care providers, pharmacy, and demographics verified. Patient wishes to discharge home, denies need for home health at this time. Patient states he has no further needs or concerns at this time. CM to follow for discharge planning needs that may arise. PCP: Leti Specialists: Katie, clamp truck driver; Dax, urologist [facility]acy[facility] Insurance: [facility], [employer] Prescription Benefit: yes Living Will/HPOA: yes, Renuka Cotton LNOK: Living Arrangements: Patient lives with in 2 story home with bed and bath on first floor, 3 steps and railing to enter the home. Patient states he is independent at home. Transportation: /self DME/HHC: Patient states he has shower chair, cane, walker, and grab bars at home. Patient denies HHC for himself. Disposition Plan: Patient to discharge home with family support and follow-up plans in place. Aparna ZACARIAS, RN, CM
--- NOTE | 2019-11-27 14:11 | CHAPLAIN ---
Type of Pastoral Visit ___ Initial Visit _x__ Follow-up Visit ___ On-call Visit ___ General Patient Visit ___ Spiritual Assessment ___ Family Conference ___ Bereavement ___ Rapid Response ___ Code Blue ___ Other (describe below) Pastoral Care Referral From _x__ Patient _x__ Family ___ Nurse ___ Physician ___ Director Of Business Development ___ Warm In Worker ___ Other (describe below) Sacrament/Intervention _x__ Active listening ___ Anointing ___ Yazidi ___ Bereavement ___ Communion ___ Kailey exploration ___ ___ Life review ___ Prayer ___ Reconciliation ___ Sacrament of Sick ___ Supportive presence ___ Wedding ___ Other (describe below) Pastoral Comments
[2019-11-27 14:22] VITALS: BP 155/64; PULSE 58; RESP 18; TEMP 36.6; O2SAT 100
[2019-11-27] MEDS: 0.9% Saline Lock 10 ML Syringe IV (16:25)
[2019-11-27] MEDS: 0.9% Normal Saline 1,000 ML 50 ML IV (17:22)
[2019-11-27] MEDS: Docusate Sodium 100 MG Capsule 200 MG PO (17:24)
[2019-11-27] MEDS: Ciprofloxacin 400 MG/200 ML BAG 200 MG IV (22:36)
[2019-11-27 22:40] VITALS: BP 141/69; PULSE 58; RESP 18; TEMP 36.6; O2SAT 98
[2019-11-28 02:31] VITALS: BP 131/63; PULSE 58; RESP 18; TEMP 36.7; O2SAT 97
--- NOTE | 2019-11-28 07:17 | PCM.PN.BLA ---
Progress Note 84-year-old male status post TURP was admitted for bleeding secondary to Eliquis urine is now clear he is on irrigation urinary remove the catheter today for voiding trial.
[2019-11-28] MEDS: Amiodarone 200 MG Tablet PO (07:45)
[2019-11-28] MEDS: Carvedilol 3.125 MG TABLET PO ×2 (07:46→17:40)
[2019-11-28] MEDS: Multivitamins,Ther W-Minerals Tablet 1 TABLET PO (07:46)
[2019-11-28 08:06] VITALS: BP 140/74; PULSE 60; RESP 18; TEMP 36.8; O2SAT 93
--- NOTE | 2019-11-28 12:28 | NURSING ---
pt stands to void, small amount of urine expelled and large clot
--- NOTE | 2019-11-28 12:59 | NURSING ---
pt up to bsc self after says call light placed on and asked for assistance and no one came-pt voided unknown amount into toilet with 3 small clots noted (pea size)-pt had been encouraged to drink water and pt had drank 2 full pitchers and told him to make next one last 2 hrs-pt is frustrated that he is still bleeding- expressing angrily that he has bleeding and there was not to be any bleeding from the prostate-i explained that this type of surgery frequently has a lot of bleeding and each pt is different and healing is different in each pt-
--- NOTE | 2019-11-28 13:53 | NURSING ---
pt ambulatory to BR for small BM, pt again does not use urinal as intructed-a few tiny (pea size clots) in toilet-pt reminded to use urinal next time he needs to void so it can be checked for amount and bleeding
--- NOTE | 2019-11-28 14:58 | NURSING ---
pt voids 100 ml of pink tinged yellow urine in urinal
[2019-11-28 15:00] VITALS: BP 147/88; PULSE 77; RESP 18; TEMP 36.9; O2SAT 98
[2019-11-28] MEDS: 0.9% Normal Saline 1,000 ML 50 ML IV (15:58)
--- NOTE | 2019-11-28 16:19 | CHAPLAIN ---
Type of Pastoral Visit ___ Initial Visit _x__ Follow-up Visit ___ On-call Visit ___ General Patient Visit ___ Spiritual Assessment ___ Family Conference ___ Bereavement ___ Rapid Response ___ Code Blue ___ Other (describe below) Pastoral Care Referral From ___ Patient _x__ Family ___ Nurse ___ Physician ___ Audio Visual Secretary ___ District Supervisor ___ Other (describe below) Sacrament/Intervention _x__ Active listening ___ Anointing ___ Nondenominational ___ Bereavement ___ Communion ___ Kailey exploration ___ ___ Life review ___ Prayer ___ Reconciliation ___ Sacrament of Sick _x__ Supportive presence ___ Wedding ___ Other (describe below) Pastoral Comments spouse of patient in [facility]; patient and spouse have been seen by this bath mix operator several times at this and previous admission; spouse expresses frustration that pt is not improving yet and will take him to surgery yet again; offered support and presence to spouse as pt is attended by staff
[2019-11-28 20:05] VITALS: BP 114/58; PULSE 67; RESP 16; TEMP 36.7; O2SAT 100
[2019-11-28] MEDS: Ciprofloxacin 400 MG/200 ML BAG 200 MG IV (22:25)
[2019-11-28] MEDS: Docusate Sodium 100 MG Capsule 200 MG PO (22:25)
[2019-11-29 02:02] VITALS: BP 123/47; PULSE 63; RESP 16; TEMP 36.6; O2SAT 100
[2019-11-29 06:31] LABS: Absolute Neutrophil Count 6.6 X10^3/uL (2.0-7.7); Basophil# 0.03 X10^3/uL; Basophil% 0.3 % (0-1); Eosinophil# 0.73 X10^3/uL; Eosinophils% 7.3 % (0-5); Hematocrit 32.5 % (40-54); Hemoglobin 10.7 g/dL (13.0-16.5); Mean Corp Hgb Conc 32.9 g/dL (32-36); Monocyte# 0.85 X10^3/uL; Monocyte% 8.5 % (0-10); NRBC Flagged by Analyzer 0 % (0-5); Neutrophil # 6.56 X10^3/uL (2.7-7.7); Neutrophil % 65.5 % (47-70); Platelet Count 301 K/mm3 (150-450); RBC Distribution Width CV 13.3 % (11.6-14.6); Red Blood Count 3.57 M/mm3 (4.6-6.2)
[2019-11-29 06:45] LABS: International Normalized Ratio 1.1; Prothrombin Time (Protime)PT. 13.4 SECONDS (11.7-14.9)
[2019-11-29 06:58] LABS: Anion Gap 5 (5-15); BUN 23 mg/dL (7-18); BUN/Creat Ratio 16.5 RATIO (10-20); Chloride 109 mmol/L (98-107); Creatinine, Serum 1.39 mg/dL (0.70-1.30); EST Glomerular Filtration Rate 52 mL/min (>60); Est Glom Filt Rate - Afr Amer 63 mL/min (>60); Estimated Creatinine Clearance 40.85 ml/min; Glucose 88 mg/dL (74-106); Potassium 4.4 mmol/L (3.5-5.1); Sodium Level 138 mmol/L (136-145)
--- NOTE | 2019-11-29 07:21 | PCM.PN.BLA ---
Progress Note Urine clear today no more bleeding so we will cancel surgery to take out the catheter for voiding trial hopefully can urinate if he is able to urinate okay we will probably send him home later today.
[2019-11-29 07:45] VITALS: BP 150/78; PULSE 69; RESP 18; TEMP 36.7; O2SAT 98
[2019-11-29] MEDS: Amiodarone 200 MG Tablet PO ×2 (08:04)
[2019-11-29] MEDS: Docusate Sodium 100 MG Capsule 200 MG PO (08:04)
[2019-11-29] MEDS: Multivitamins,Ther W-Minerals Tablet 1 TABLET PO (08:04)
[2019-11-29] MEDS: Carvedilol 3.125 MG TABLET PO ×2 (08:04→17:28)
--- NOTE | 2019-11-29 09:59 | NURSING ---
assisted pt to bathroom were he was able to void into hat 120ml light pink urine with quarter sized clot noted. post void residual of 20ml. notified Dr Verduzco and will continue to monitor. to reassess this afternoon.
--- NOTE | 2019-11-29 12:20 | NURSING ---
pt voided 100ml and had PVR of greater than 350, attempted to void again with another 100ml out, PVR then 300. urine light pink with no clots but did note that urine flow was very slow and pt does report that he feels more urine in his bladder. Dr Verduzco notified and new orders placed.
[2019-11-29 13:00] VITALS: BP 141/58; PULSE 57; RESP 16; TEMP 36.7; O2SAT 100
[2019-11-29] MEDS: 0.9% Normal Saline 1,000 ML 50 ML IV (13:09)
[2019-11-29] MEDS: Tamsulosin HCl 0.4 MG Capsule PO (17:28)
[2019-11-29 17:30] VITALS: BP 130/74; PULSE 66; RESP 18; TEMP 36.9; O2SAT 100
--- NOTE | 2019-11-29 17:37 | DCINST_ITS ---
Discharge Diet: Light diet - advance as tolerated Discharge Activity: Return to Normal Activity Catheter: Marroquin to leg bag, Marroquin to large bag Drain: [place] Allergies/Adverse Reactions: Allergies naproxen [From Aleve] Allergy (Verified 11/25/19 18:37) Hives Penicillins Allergy (Verified 11/25/19 18:37) Hives Medications to take at Discharge aspirin 81 mg tablet,delayed release 81 mg PO QDAY 04/20/17 amiodarone 200 mg tablet 100 mg PO QDAY #45 tab 04/23/19 apixaban 5 mg tablet 5 mg PO BID #60 tab 04/23/19 carvedilol 3.125 mg tablet 3.125 mg PO BID #180 tab 07/19/19 Multivitamin with Minerals [Multiple Vitamin] 1 ea PO DAILY 11/08/19 Ciprofloxacin [Cipro] 500 mg PO BID #10 tab 11/29/19 Tamsulosin HCl [Flomax] 0.4 mg PO DAILY #30 cap 11/29/19 The following prescriptions were given: Ciprofloxacin [Cipro] 500 mg PO BID #10 tab Transmission Status: Pending to [facility]/pharmacy #[id number] Tamsulosin HCl [Flomax] 0.4 mg PO DAILY #30 cap Transmission Status: [id number] Primary Care Physician: Vin Landeros DO [Primary Care Provider] - Test Results: Test results from this visit will be discussed in further detail at your follow- up appointment, if applicable. Please Follow Up With: Lavelle Verduzco MD When: please call to make an appointment.
--- NOTE | 2019-11-30 12:43 | CASEMGMT ---
NORA QUIROGA DC PHONE CALL DC DATE: 11/29/2019 DC DISPOSITION: Home DC DIAGNOSIS: Hematuria LACE/STRATA: 03/06 F/U APPTS MADE PRIOR TO DC: No PRESCRIPTIONS ACQUIRED BY PT: yes Intro role of CM to patient's . states patient is doing well, no concerns. Patient has prescriptions and no questions re: antibiotic. No care improvement suggestions were given. Keiry ZACARIAS RN ACM
--- NOTE | 2019-12-03 11:45 | DS.PCM_ITS ---
Discharge Date and Diagnosis Date of Admission: 11/26/19 Date of Discharge: 11/30/19 - Secondary Discharge Diagnosis Chronic Problems: Chronic Problems (Last Reviewed 11/26/19 @ 07:[address] 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 - Physical Exam Vitals/I&O's: Vital Signs Temp Pulse Resp BP Pulse Ox 98.5 F 66 18 130/74 H 100 11/29/19 17:30 11/29/19 17:30 11/29/19 17:30 11/29/19 17:30 11/29/19 17:30 Oxygen Delivery Method Room Air Weight: 89.5 kg Body Mass Index (BMI) 28.3 General: Alert, Oriented x3, Cooperative HEENT: Atraumatic, PERRLA, EOMI, Normocephalic Neck: Supple, No JVD, Negative Carotid Bruits Lungs: Clear to auscultation, Normal air movement Cardiovascular: Regular rate, No murmurs Abdomen: Bowel Sounds Present, Soft, Non Tender Extremities: No edema, Capillary Refill Less than 3 Seconds Skin: No rashes, No breakdown Musculoskeletal: No Tenderness to Palpation of Joints or Extremities Neurological: Cranial nerves II-XII grossly intact Psych/Mental Status: Normal Affect, Appropriate Discharge Diet: Light diet - advance as tolerated Discharge Activity: Return to Normal Activity Catheter: Baker to leg bag, Baker to large bag Drain: [place] Home Medications: Medications to take at Discharge aspirin 81 mg tablet,delayed release 81 mg PO QDAY 04/20/17 amiodarone 200 mg tablet 100 mg PO QDAY #45 tab 04/23/19 apixaban 5 mg tablet 5 mg PO BID #60 tab 04/23/19 carvedilol 3.125 mg tablet 3.125 mg PO BID #180 tab 07/19/19 Multivitamin with Minerals [Multiple Vitamin] 1 ea PO DAILY 11/08/19 Ciprofloxacin [Cipro] 500 mg PO BID #10 tab 11/29/19 Tamsulosin HCl [Flomax] 0.4 mg PO DAILY #30 cap 11/29/19 Following Prescriptions Were Given to Patient: Ciprofloxacin [Cipro] 500 mg PO BID #10 tab Transmission Status: Received by [facility]/pharmacy #[id number] Tamsulosin HCl [Flomax] 0.4 mg PO DAILY #30 cap Transmission Status: Received by [facility]/pharmacy #[id number] Primary Care Physician: Vin Landeros DO [Primary Care Provider] - Please Follow Up With: Lavelle Verduzco MD When: please call to make an appointment. Medical Necessity - Tobacco Use Smoking Status: Never smoker Meaningful Use Info Meaningful Use Diagnoses (Choose all that apply): None applicable
== END 2019-11-29 18:45 | disposition home or self-care (01) | DRG 694 ==
LOC: ED 19:24 → MS3 21:33
PROVIDERS: Anesthesiology; Admitting Provider Urology; Emergency Provider Emergency Medicine; PCP Family Medicine; Visit Provider Urology
DX: N13.8 Other obstructive and reflux uropathy (principal); D68.32 Hemorrhagic disorder due to extrinsic circulating anticoagulants; I47.1 Supraventricular tachycardia; R31.0 Gross hematuria; T45.515A Adverse effect of anticoagulants, initial encounter; Y92.9 Unspecified place or not applicable; N40.1 Benign prostatic hyperplasia with lower urinary tract symptoms; R33.9 Retention of urine, unspecified; I48.0 Paroxysmal atrial fibrillation; I49.3 Ventricular premature depolarization; I10 Essential (primary) hypertension; E78.5 Hyperlipidemia, unspecified; I73.9 Peripheral vascular disease, unspecified; Z79.01 Long term (current) use of anticoagulants; Z79.82 Long term (current) use of aspirin; Z79.899 Other long term (current) drug therapy; Z90.79 Acquired absence of other genital organ(s)
CPT/HCPCS: 36415; 51702; 80048; 85025; 85610; 99284; 99285; J7030; A4216; J0744

== ENCOUNTER → 2019-12-13 09:27 | Outpatient (CLI) | payer MEDICARE, OTHER, SELFPAY ==
[2019-11-25 20:30] VITALS: BMI 28.3
--- NOTE | 2019-12-13 09:30 | VDLE_ITS ---
Reason For Study: Pain and swelling of left lower leg RIGHT LEFT CFV is compressible, spontaneous, phasic, GSV is normal. competent and demonstrates normal CFV is compressible, spontaneous, phasic, augmentation. competent, and demonstrates normal Procedure augmentation. Exam performed in department. FV is compressible, spontaneous, phasic, A preliminary report was called and/or faxed competent and demonstrates normal to Leti. augmentation. T/P Trunk is compressible. PTV is compressible. LT PerV is compressible. Acute superficial vein thrombosis is noted in the left SSV from junction to mid calf. Thrombus is extending into the popliteal vein. Popliteal vein is partially compressible with thrombus extending from the SSV. Thrombus filled varicose veins noted throughout the proximal calf area. Interpretation Summary Acute deep vein thrombosis is noted in the left popliteal vein. The remainder of the left lower extremity deep venous system is patent and compressible. The left common femoral vein and femoral vein are competent. The left great saphenous vein appears patent and compressible segmentally. Acute superficial thrombophlebitis is noted in the left small saphenous vein from the mid-calf to the sapheno-popliteal junction, and extending into the left popliteal vein. Acute superficial thrombophlebitis is noted involving superficial varicosities throughout the left proximal calf. Ordering Physician: Vin Landeros Referring Physician: Vin Landeros Performed By: Aparna Ventura RVT
== END ==
PROVIDERS: PCP Family Medicine; Referring Provider Family Medicine; Visit Provider Family Medicine
DX: I82.432 Acute embolism and thrombosis of left popliteal vein (principal)
CPT/HCPCS: 93971

== ENCOUNTER 2020-06-05 17:15 | Outpatient (RCR) | payer MEDICARE, OTHER, SELFPAY ==
[2020-01-17 11:02] VITALS: BMI 28.7
[2020-06-05] MEDS: COVID-19 VACC, MRNA(PFIZER)/PF 30 MCG/0.3 ML SYRINGE IM (10:16)
[2020-06-26] MEDS: COVID-19 VACC, MRNA(PFIZER)/PF 30 MCG/0.3 ML SYRINGE IM (09:54)
== END 2020-06-05 23:59 ==
LOC: IMMUN 17:15
PROVIDERS: PCP Family Medicine; Referring Provider Family Medicine; Visit Provider Family Medicine
DX: Z23 Encounter for immunization (principal)
CPT/HCPCS: 0001A; 0002A

== ENCOUNTER → 2020-07-17 14:42 | Outpatient (CLI) | payer MEDICARE, OTHER, SELFPAY ==
[2020-07-17 13:54] VITALS: BMI 30.5
[2020-07-17 16:10] LABS: AST(SGOT) 19 U/L (15-37); Alanine Aminotransfer ALT/SGPT 26 U/L (16-61); Albumin, Serum 3.3 g/dL (3.2-5.0); Alkaline Phosphatase 145 U/L (45-117); Bilirubin, Direct 0.15 mg/dL (0.00-0.30); Free T3 2.4 pg/mL (2.18-3.98); Globulin 4.1 g/dL (2.2-4.2); Protein, Total 7.4 g/dL (6.4-8.2); T4 Free Direct 1.17 ng/dL (0.76-1.46); Thyroid Stim Hormone (TSH) 1.09 uIU/mL (0.358-3.74)
== END ==
PROVIDERS: PCP Family Medicine; Referring Provider Physician Assistant Medical; Visit Provider Physician Assistant Medical
DX: I48.0 Paroxysmal atrial fibrillation (principal); I10 Essential (primary) hypertension; Z79.899 Other long term (current) drug therapy
CPT/HCPCS: 36415; 80076; 84439; 84443; 84481

== ENCOUNTER → 2020-07-21 06:54 | Outpatient (CLI) | payer MEDICARE, OTHER, SELFPAY ==
[2020-07-17 13:54] VITALS: BMI 30.5
--- NOTE | 2020-07-22 09:57 | PFT ---
INTRODUCTION: The patient is a 84-year-old male that presents for pulmonary function studies secondary to a diagnosis of high risk medication use. Respiratory therapy reports good patient effort. Bronchodilators were used during testing. INTERPRETATION: Forced expiration spirometry demonstrates no evidence of a large airways obstructive ventilatory defect. There is no significant response to aerosolized bronchodilators. Spirograms are of good quality but do not plateau indicating slow emptying of the lungs. Body plethysmography was performed and reveals lung volumes to be within normal limits. Diffusing capacity by single breath CO is also within normal limits. When compared to previous pulmonary function studies from October 2018, there has been a 15% reduction in FEV1 and 9% reduction in total lung capacity. IMPRESSION: Grossly normal pulmonary function studies.
== END ==
PROVIDERS: PCP Family Medicine; Referring Provider Physician Assistant Medical; Visit Provider Physician Assistant Medical
DX: I48.0 Paroxysmal atrial fibrillation (principal); I10 Essential (primary) hypertension; Z79.899 Other long term (current) drug therapy
CPT/HCPCS: 94060; 94726; 94729

== ENCOUNTER 2021-05-06 10:33 | Outpatient (CLI) | payer MEDICARE, OTHER, SELFPAY ==
--- NOTE | 2021-05-06 10:38 | RAD_ITS ---
STUDY: X-RAY CHEST REASON FOR EXAM: Male, 85 years old. 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 Normal size heart. Normal mediastinum and christopher. Normal visualized pulmonary arteries. There is atherosclerotic calcification of the aortic arch with tortuosity. There are diffuse degenerative changes of the visualized thoracic spine. There is degenerative osteoarthritis of the bilateral shoulders. There is no demonstrated abnormality of the visualized soft tissue structures of the upper abdomen. RAD/Chest PA and Lateral IMPRESSION: There are no acute findings. Electronically Signed: Adam Madsen MD at 20:58 EST ,
[2021-05-06 12:16] LABS: Absolute Lymphocyte Count 1.82 X10^3/uL (0.83-4.51); Absolute Neutrophil Count 3.1 X10^3/uL (2.0-7.7); Basophil# 0.03 X10^3/uL; Basophil% 0.5 % (0-1); Eosinophil# 0.57 X10^3/uL; Eosinophils% 9.3 % (0-5); Hematocrit 38.9 % (40-54); Hemoglobin 12.6 g/dL (13.0-16.5); Lymphocyte # 1.82 X10^3/ul (0.83-4.51); Lymphocyte % 29.8 % (19-41); Mean Corp Hgb Conc 32.4 g/dL (32-36); Mean Corpuscular Hgb 29.6 pg (27.0-32.0); Mean Corpuscular Volume 91.3 fL (80-94); Mean Platelet Vol. 10.5 fl (6.2-12.0); Monocyte# 0.61 X10^3/uL; NRBC Flagged by Analyzer 0 % (0-5); Neutrophil # 3.06 X10^3/uL (2.7-7.7); Neutrophil % 50.2 % (47-70); Platelet Count 232 K/mm3 (150-450); RBC Distribution Width CV 14.1 % (11.6-14.6); RBC Distribution Width SD 47.6 fl (35.1-43.9); Red Blood Count 4.26 M/mm3 (4.6-6.2); White Blood Count 6.1 K/mm3 (4.4-11.0)
[2021-05-06 12:56] LABS: ALB/GLOB Ratio 0.7 RATIO (0.9-2.4); AST(SGOT) 16 U/L (15-37); Alanine Aminotransfer ALT/SGPT 22 U/L (16-61); Albumin, Serum 3.2 g/dL (3.2-5.0); Alkaline Phosphatase 127 U/L (45-117); Anion Gap 6 (5-15); BUN 22 mg/dL (7-18); BUN/Creat Ratio 13.1 RATIO (10-20); Calcium,Total 8.4 mg/dL (8.5-10.1); Chloride 107 mmol/L (98-107); Creatinine, Serum 1.68 mg/dL (0.70-1.30); EST Glomerular Filtration Rate 41 mL/min (>60); Est Glom Filt Rate - Afr Amer 50 mL/min (>60); Globulin 4.3 g/dL (2.2-4.2); Glucose 82 mg/dL (74-106); Potassium 4.6 mmol/L (3.5-5.1); Protein, Total 7.5 g/dL (6.4-8.2); Sodium Level 137 mmol/L (136-145); Thyroid Stim Hormone (TSH) 0.91 uIU/mL (0.358-3.74)
== END 2021-05-06 23:59 | disposition short-term general hospital (02) ==
PROVIDERS: PCP Family Medicine; Referring Provider Physician Assistant Medical; Visit Provider Physician Assistant Medical
DX: I47.1 Supraventricular tachycardia (principal); I48.0 Paroxysmal atrial fibrillation; E78.2 Mixed hyperlipidemia; I10 Essential (primary) hypertension; Z79.899 Other long term (current) drug therapy
CPT/HCPCS: 36415; 71046; 80053; 84443; 85025